=== PATIENT | male | born 2000 | race Caucasian/White ===

== ENCOUNTER 2021-04-07 10:25 | Emergency (ER) | payer OTHER, SELFPAY ==
[2021-04-07 10:30] VITALS: BP 124/64; PULSE 107; RESP 18; TEMP 37.1; O2SAT 97
--- NOTE | 2021-04-07 10:56 | ED.URI ---
HPI - URI/Sore Throat General Chief Complaint: Upper Respiratory Infection Stated Complaint: Ear Pain,Dry Throat Time Seen by Provider: 04/07/21 10:47 Source: patient and RN notes reviewed Mode of arrival: ambulatory Limitations: no limitations History of Present Illness HPI Narrative: Patient presents today complaining of a 2-day history of ear popping and throat tightness and dryness after camping last weekend. Denies any additional symptoms to include fever, congestion, rhinorrhea, cough. No recent sick contacts. Currently rates pain 12/11 and has been taking ibuprofen with mild relief. Related Data Allergies Allergy/AdvReac Type Severity Reaction Status Date / Time No Known Allergies Allergy Verified 04/07/21 10:44 Review of Systems Review of Systems: CONSTITUTIONAL: Denies body aches, fever, chills, or sweats. EYES: Denies visual changes, redness, or discharge. ENT: Denies rhinorrhea, congestion, sore throat. + Bilateral ear popping and throat dryness CARDIOVASCULAR: Denies chest pain, palpitations, or edema. RESPIRATORY: Denies cough or dyspnea. GASTROINTESTINAL: Denies abdominal pain, nausea, vomiting, or diarrhea. GENITOURINARY: Denies dysuria or hematuria. SKIN: Denies rash, itching, or wounds. MUSCULOSKELETAL: Denies back pain, joint pain, or myalgia. NEUROLOGIC: Denies headache, numbness, tingling, or weakness. PSYCH: Denies depression or anxiety. [facility] Past Medical History Medical History Asthma Pneumonia Comments At time of signature, I have reviewed and agree with nursing past medical, surgical, social and family history unless otherwise noted. Please see nursing chart for further information. There is no relevant family history pertinent to the presenting complaint Exam Narrative: GENERAL: Well-appearing, well-nourished, and in no acute distress. HEAD: Normocephalic, atraumatic. EYES: EOMI. No redness or drainage. Conjunctivae normal. ENT: Mucous membranes pink and moist. Nares clear. No rhinorrhea. Right TM is severely injected and retracted. Left TM is robles and retracted. Throat is erythematous and mildly edematous without exudate. Uvula midline. NECK: Normal AROM. Supple. No lymphadenopathy. CHEST: No respiratory distress. Clear to auscultation. HEART: Regular rate and rhythm. No murmur appreciated. Normal peripheral pulses. EXTREMITIES: Normal range of motion. No edema. SKIN: Warm, dry, no rash. Capillary refill normal. Normal skin turgor. NEURO: No focal deficits. Alert and oriented x3. Gait steady. PSYCH: Normal affect. No signs of depression or anxiety. Course Vital Signs Vital signs: Vital Signs Temperature 98.7 F 04/07/21 10:30 Pulse Rate 107 H 04/07/21 10:30 Respiratory Rate 18 04/07/21 10:30 Blood Pressure 124/64 04/07/21 10:30 Pulse Oximetry 97 04/07/21 10:30 Temperature 98.7 F 04/07/21 10:30 Pulse Rate 107 H 04/07/21 10:30 Respiratory Rate 18 04/07/21 10:30 Blood Pressure 124/64 04/07/21 10:30 Pulse Oximetry 97 04/07/21 10:30 Reviewed. Pt has been instructed to follow up with his PCP regarding his elevated blood pressure today. MDM - URI/Sore Throat Differential Diagnosis Differential diagnosis: Likely upper respiratory infection, otitis media, viral infection, pharyngitis and other (Strep throat) Critical Care Time Critical Care Time Critical Care Time: No Discharge Plan Discharge Clinical Impression: Acute right otitis media Pharyngitis Qualifiers: Pharyngitis/tonsillitis etiology: unspecified etiology Qualified Code(s): J02.9 - Acute pharyngitis, unspecified Patient Disposition: Home, Self-Care Condition: Stable Instructions: Antibiotic Form, Pharyngitis (ED), Ear Infection (ED) Additional Instructions: Please take the amoxicillin as prescribed until gone. Start a decongestant such as Sudafed to help decrease the pressure in your ears. You may als
== END 2021-04-07 11:05 | disposition home or self-care (01) ==
PROVIDERS: Emergency Provider Nurse Practitioner
DX: H66.91 Otitis media, unspecified, right ear (principal); J02.9 Acute pharyngitis, unspecified; J45.909 Unspecified asthma, uncomplicated
CPT/HCPCS: 99213; G0463

== ENCOUNTER 2025-01-08 19:17 | Emergency (ER) | payer OTHER, SELFPAY ==
--- OUTSIDE RECORDS SUMMARY | 2025-01-08 19:20 | XMS_ITS | Clinical Summary ---
Author Organization [facility] Address [address] [place] [address] Phone Care Team Providers Care Cinder Man Name Role Phone Charissa Matamoros APRN, AUTHORIZATION REP Primary Care Provider + Allergies No known active allergies Medications No known medications Active Problems No known active problems Immunizations Immunization Administration Dates Next Due Adenovirus Vaccine 05/02/2019 DTAP VACCINE 01/01/2002, 1,02/01/2001,12/02 HEP B/HIB Combined Vaccine 04/03/2001 Hepatitis A And Hepatitis B Vaccine 05/10/2019 Hepatitis A Vaccine, Pediatric/adolescent, 2 Dose Schedule 07/02/2011 Hepatitis A, Pediatric, Unsp ecified Formulation 10/23/2010 Hepatitis B Vaccine, Pediatric/adolescent 02/01/2001,2000,2000 Hib Vaccine,unspecified Formulation 02/01/2001,0 2000 Human Papillomavirus (HPV) 9 -valent Vaccine 01/04/2012,10/14/2011 Human Papillomavirus Vaccine (HPV), quadrivalent 07/05/2011 Inactivated Polio Vaccine 01/02/2002,02/01/2001, 2000 Influenza Vaccine, Quadrivalent, PF 05/02/2019 Influenza Vaccine,unspecifie d Formulation 07/12/2005 MMR Vaccine 05/10/2019,10/06/2001 Meningococcal MCV4O 10/23/2010 Meningococcal Vaccine 05/02/2019,11/18/2016 Pneumococcal PCV, Unspecifie d Formulation 01/03/2002,04/03/2001,02/01/2001,12/02 Pneumococcal Vaccine Adult - 23 Valent 9 TDAP Vaccine 05/02/2019,10/14/2011 Tuberculin Skin Test; Magalyifi ed Protein Derivative Solutiol 05/02/2019 Varicella Vaccine Live 10/23/2010,10/06/2001 Social History Tobacco Use Types Packs/Day Years Used Date Smoking Tobacco: Never Smokeless Tobacco: Never Alcohol Use Standard Drinks/Week Comments No 0 (1 standard drink = 0.6 oz pur e alcohol) Sexually Active Control Partners Comments Yes Male Condom Female Sex and Gender Information Value Date Recorded Sex Assigned at Not on file Legal Sex Male 8:38 PM CDT Gender Identity Not on file Sexual Orientation Not on file Last Filed Vital Signs Vital Sign Reading Time Taken Comments Blood Pressure 139/66 08/09/2024 9:48 PM [employer] Pulse 95 08/09/2024 9:48 PM [employer] Temperature 38.4 C (101.1 F) 08/09/2024 9:48 PM [employer] Respiratory Rate 18 08/09/2024 9:48 PM [employer] Oxygen Saturation 99% 08/09/2024 9:48 PM [employer]ER Inhaled Oxygen Concentration - - Weight 108.9 kg (240 lb) 08/09/2024 9:48 PM [employer] Height 188 cm (6' 2) 08/09/2024 9:48 PM [employer] Body Mass Index 30.81 08/09/2024 9:48 PM [employer] SANDER Plan of Treatment Health Maintenance Due Date Last Done Comments Hepatitis C Virus (HCV) Screening 2000 SARS-COV-2 Immunization ( season) 2024 04/09/2021, 03/10/2021 Influenza Immunization (#1) 2025 05/02/2019, 0 07/12/2005 DTaP/Tdap/Td Immunization (7 - Td or Tdap) 05/02/2029 05/02/2019, 10/14/2011, 01/01/2002, Additional history exists Respiratory Syncytial Virus (RSV) Immunization (Adult) (1 - 1-dose 75+ series) 10/01/2075 Human Papillomavirus (HPV) Immunization Completed 01/04/2012, 10/14/2011, 07/05/2011 Meningococcal Immunization (ACWY) Completed 05/02/2019, 11/18/2016, 10/23/2010 Pneumococcal Immunization Combined Aged Out 05/02/2019, 01/03/2002, 04/03/2001, Additional history exists No longer eligible based on patient's age to complete this topic Hepatitis B Immunization Completed 019, 04/03/2001, 02/01/2001, Additional history exists Rotavirus Immunization Aged Out No lo nger eligible based on patient's age to complete this topic Insurance Prom[employer]ity Care Teams Cinder Man Relationship Specialty Start Date End Date Charissa Matamoros, LIP CUTTER, AUTHORIZATION REP [address] [place] [address] PCP - General Advanced Practice Nurse 08/09/24
--- OUTSIDE RECORDS SUMMARY | 2025-01-08 19:20 | XMS_ITS | Clinical Summary ---
Author Organization [facility] Address [address] [place] [address] Care Team Providers Care Channel Marketing Manager Name Role Phone Unknown, Provider Primary Care Provider Unavaila ble Source Comments [facility],non-owned Affiliates and Associated Physician Practices is amultiple site organization consisting of ambulatory clinics and hospital sitesin [place], [place], [place] and [place]. This disclosure is being madepursuant to the Care Everywhere program and may not contain all information available regarding this patient. Last updated 18.[facility] Allergies No known active allergies Medications * Be aware that medications may not be up to date on this document. Alwaysverify current medications with the patient. No known medications Active Problems Problem Noted Date Diagnosed Date Acne vulgaris 02/23/2018 Other viral warts 02/23/2018 Family History Medical History Relation Name Comments Asthma Neg Hx CVA Neg Hx Cancer - Breast Neg Hx Cancer - Other Neg Hx Cancer - Skin, Melanoma Neg Hx Cancer - Skin, Non Melanoma Neg Hx Eczema Neg Hx Hemophilia Neg Hx Psoriasis Neg Hx Social History Tobacco Use Types Packs/Day Years Used Date Smoking Tobacco: Never Smokeless Tobacco: Never Alcohol Use Standard Drinks/Week Comments No 0 (1 standard drink = 0.6 oz pur e alcohol) Sex and Gender Information Value Date Recorded Sex Assigned at Not on file Legal Sex Male 12:19 PM CDT Gender Identity Not on file Sexual Orientation Not on file Plan of Treatment Health Maintenance Due Date Last Done Comments HIV SCREENING 10/01/2015 HPV VACCINE (1 - Male 3-dose series) 10/01/2015 HEPATITIS C SCREENING 09/26/2018 DTAP/TDAP/TD VACCINES (1 - Tdap) 10/01/2019 HEPATITIS B VACCINE (1 of 3 - 19+ 3-dose series) 10/01/2019 COVID-19 VACCINE (2023-2 5 season) 2024 DEPRESSION SCREENING 07/04/2024 INFLUENZA VACCINE (#1) 2025 ZOSTER VACCINE (1 of 2) 2050 HIB VACCINE Aged Out No longer eligi ble based on patient's age to complete this topic MENINGOCOCCAL (Group B) VACC INE SHARED DECISION-MAKING Aged Out No longer eligibl e based on patient's age to complete this topic MENINGOCOCCAL GROUPS A/C/Y/W VACCINE Aged Out No longer eligible b ased on patient's age to complete this topic PNEUMOCOCCAL VACCINE Aged Out No long er eligible based on patient's age to complete this topic Insurance [facility] Care Teams Channel Marketing Manager Relationship Specialty Start Date End Date Unknown, Provider PCP - General 11/30/17
[2025-01-08 19:24] VITALS: BP 148/69; PULSE 101; RESP 20; TEMP 37.3; O2SAT 100
--- NOTE | 2025-01-08 19:38 | ECG_ITS ---
Test Date: 2025-01-08 19:43:15 Measurements Intervals [place] Rate: 80 P: 41 AL: 147 QRS: 60 QRSD: 106 T: 21 QT: 337 QTc: 390 Interpretive Statements SINUS RHYTHM NORMAL ELECTROCARDIOGRAM Electronically Signed On 01-09-2025 07:46:34 CDT by Jarvis Irving M.D.
--- NOTE | 2025-01-08 19:41 | ED_ITS ---
HPI - Abdominal Pain General Chief Complaint: Dizziness Stated Complaint: stomach cramp/dizzy/nausea Time Seen by Provider: 01/08/25 19:25 Source: patient and RN notes reviewed Mode of arrival: ambulatory Limitations: no limitations History of Present Illness HPI narrative: 24-year-old male presents Express Care complaining of epigastric pain for a few days. Patient also reports nausea. Patient denies any vomiting or diarrhea. Patient reports a sharpness to his epigastrium area. Patient states today he started getting nauseous and lightheaded as well. Patient denies any loss of consciousness, dizziness, chest pain, shortness of breath, headaches, vision changes, in her symptoms. 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 and states he may be overheated. Related Data Allergies Allergy/AdvReac Type Severity Reaction Status Date / Time No Known Allergies Allergy Verified 01/08/25 19:37 Review of Systems Review of Systems: CONSTITUTIONAL: Denies fever, chills, or sweats. EYES: Denies visual changes, redness, or discharge. ENT: Denies rhinorrhea, congestion, sore throat, or otalgia. CARDIOVASCULAR: Positive for lightheadedness. Denies chest pain, loss of consciousness, dizziness palpitations, or edema. RESPIRATORY: Denies cough, wheezing, or dyspnea. GASTROINTESTINAL: Positive for abdominal pain, nausea. Negative for vomiting or diarrhea. GENITOURINARY: Denies dysuria or hematuria. SKIN: Denies rash or itching. MUSCULOSKELETAL: Denies back pain, joint pain, or myalgia. NEUROLOGIC: Denies headache, numbness, or weakness. PSYCHIATRIC: Denies anxiety or depression. All other systems reviewed are negative, except as documented in HPI. PMFSH Past Medical History Medical History Pneumonia Asthma Comments At the time of my signature, I reviewed and agree with the nursing past medical, surgical, social, and family history. There is no relevant family history pertinent to the patient complaint. Exam Narrative: GENERAL: This is a well-nourished, well-developed adult, in no apparent distress. They are non ill-appearing, nontoxic appearing. Patient is mildly sweaty. Patient just left work to come here HEAD: normocephalic, atraumatic. EYES: Sclera clear/white. Conjunctiva normal. Vision is grossly intact. Extraocular movements intact EARS: External ears normal, Hearing grossly intact. NOSE: External nose normal THROAT: Mucous membranes moist, posterior pharynx clear, without erythema or swelling. Uvula midline. NECK: Neck supple, non-tender without lymphadenopathy, masses or thyromegaly. CARDIOVASCULAR: Regular rate and rhythm without murmurs, gallops, or rubs. RESPIRATORY: Clear to auscultation. Breath sounds equal bilaterally. No wheezes, rales, or rhonchi. GASTROINTESTINAL: Abdomen soft, mild epigastric tenderness to palpation, nondistended. Bowel sounds are active. No hepato-splenomegaly, or palpable masses. No guarding or rigidity. No rebound tenderness. Negative Harris sign. SKIN: warm, Dry, intact with no suspicious lesions or rash, good texture and turgor. NEURO: awake, alert, and oriented to person, place and time. There were no obvious focal neurologic abnormalities. EXTREMITIES: No joint tenderness, effusion, or edema noted. BACK: Nontender without deformity. No CVA tenderness. Course Course Emergency Course: Portions of this record may have been created with voice recognition software Level of Care: Express Care Visit Vital Signs Vital signs: Vital Signs Temperature 99.2 F 01/08/25 19:24 Pulse Rate 101 H 01/08/25 19:24 Respiratory Rate 20 01/08/25 19:24 Blood Pressure 148/69 H 01/08/25 19:24 Pulse Oximetry 100 01/08/25 19:24 Oxygen Delivery Room Air 01/08/25 19:24 Temperature 99.2 F 01/08/25 19:24 Pulse Rate 118 H 01/08/25 19:53 Respiratory Rate 20 01/08/25 19:24 Blood Pressure 145/65 H 01/08/25 19:53 Pulse Oximetry 100 01/08/25 19:24 Oxygen Delivery Room Air 01/08/25 19:24 Reviewed MDM - Abdominal Pain MDM Narrative Medical decision making narrative: EKG sinus rhythm without any ischemic findings, no heart blocks or arrhythmias. EKG is reassuring. Blood glucose 99 here. Orthostatics negative, patient did have tachycardia with position change, no drop in blood pressure. Patient is likely having mild heat exhaustion and appears to have gastritis. Mucous membranes are moist, no tachycardia. No peritoneal findings, negative Harris si gn. Will prescribe patient Pepcid for gastritis and Zofran as needed for nausea and vomiting.Advised patient drink plenty of fluids along with electrolyte supplements such as Pedialyte or other sports drinks. Discussed physical exam findings. Advised supportive measures and signs/symptoms to go to the ER. Pt is appropriate for outpt treatment and f/u. Differential Diagnosis Differential diagnosis: Likely other (Gastritis, cholecystitis, gastroenteritis, acid reflux, heartburn, heat exhaustion, dehydration) Lab Data Attestation: I reviewed the patient's lab results. Labs: Lab Results 01/08/25 Range/Units 19:45 POC Capillary Glucose 99 (65-105) mg/dl ECG Data EKG #1: Attestation: I personally reviewed and interpreted this ECG as follows: ECG completion date: 01/08/25 ECG completion time: 19:43 Prior ECG tracings: not available for review normal rate, sinus rhythm, no ectopy, no ST changes, normal QRS and NL axis Critical Care Time Critical Care Time Critical Care Time: No Discharge Plan Discharge Clinical Impression: Abdominal pain, epigastric Heat exhaustion Qualifiers: Encounter type: initial encounter Qualified Code(s): T67.5XXA - Heat exhau stion, unspecified, initial encounter Patient Disposition: Home Condition: Stable Instructions: Gastritis (ED), Heat Exhaustion (ED) Additional Instructions: EKG is normal sinus rhythm with no signs of a heart attack. Your blood sugars normal. Your orthostatic vital signs and not show any drop in blood pressure however your heart rate did increase. It Is likely has some mild heat exhaustion and mild dehydration. You may also have gastritis. Please rest tonight and drink plenty of fluids. Stay out of the heat. Please supplement with electrolyte supplements such as Pedialyte her other sports drinks. Take Pepcid as directed. Take Zofran as needed for nausea and vomiting. Follow-up with PCP in 3-5 days. If your symptoms worsen, you developed severe nausea and vomiting, worsening abdominal pain, fevers, body aches, chills, worsening dehydration, you lose consciousness, worsening lightheadedness, no urine output in 24 hours, or any other concerns please go to the ER immediately. When working please take me were frequent breaks during this heat and drink plenty of fluids, you may need additional fluid when it is this hot outside. Patient Language: Khmer Prescriptions: New ondansetron 4 mg tablet,disintegrating 4 mg PO Q8H PRN (Reason: nausea and vomiting) Qty: 12 0RF famotidine [Pepcid] 20 mg tablet 20 mg PO BID 14 Days Qty: 28 0RF Follow-up/Referrals: PHYSICIAN,ASSISTANT COACH [Primary Care Provider] - Stand Alone Forms: Work/School Release IP Time of Disposition: 20:06
[2025-01-08 19:44] VITALS: BP 125/57; PULSE 85
[2025-01-08 19:49] VITALS: BP 145/66; PULSE 101
[2025-01-08 19:53] VITALS: BP 145/65; PULSE 118
== END 2025-01-08 20:12 | disposition home or self-care (01) ==
DX: R10.13 Epigastric pain (principal); T67.5XXA Heat exhaustion, unspecified, initial encounter; X30.XXXA Exposure to excessive natural heat, initial encounter; R42 Dizziness and giddiness; J45.909 Unspecified asthma, uncomplicated
CPT/HCPCS: 82948; 93005; 99213; G0463